=== PATIENT | female | born 1990 | race Two or more races ===

== ENCOUNTER 2019-05-25 13:25 | Emergency (ER) | payer OTHER ==
[~2019-05-25] VITALS: Ht 160 cm; Wt 68.0 kg
[2019-05-25 14:10] VITALS: BP 128/81
[2019-05-25 14:10] LABS: Basophils # (auto) 0 uL; Basophils % (auto) 0.5 % (0.0-2.0); Eosinophils # (auto) 0 uL; Eosinophils % (auto) 0.1 % (0.0-7.0); Hematocrit 39.6 % (36.0-46.0); Hemoglobin 13.5 g/dL (12.2-16.2); Lymphocytes # (auto) 1.1 uL; Lymphocytes % (auto) 12.3 % (10.0-50.0); Mean Corpuscular Hemoglobin 29.9 pg (28.0-32.0); Monocytes # (auto) 0.4 uL; Monocytes % (auto) 4.8 % (0.0-12.0); Neutrophils # (auto) 7.7 uL; Neutrophils % (auto) 82.3 % (37.0-80.0); Platelet Count (auto) 370 10^3/uL (140-450); Red Cell Distribution Width 14.6 % (11.8-14.3); White Blood Cell 9.3 10^3/uL (4.4-10.8)
== END 2019-05-25 17:40 | disposition home or self-care (01) ==
LOC: ER 13:25
DX: O20.0 Threatened abortion (principal); Z3A.01 Less than 8 weeks gestation of pregnancy
CPT/HCPCS: 36415; 76801; 84702; 85025